=== PATIENT | female | born 1960 | race Caucasian/White ===

== ENCOUNTER → 2019-09-09 | Day surgery (SDC) | payer BC ==
[~2019-09-09] MED LIST: AMLODIPINE BESYL5 MG PO; ELAVIL PO; HYDROCODONE PO; HYOSCYAMINE 0.125 MG TAB ONE; IBUPROFEN PO; LEVAQUIN250 MG PO; LEVOCETIRIZINE D5 MG; LOSARTAN POTASS25 MG; LOVASTATIN20 MG PO; METFORMIN HCL500 MG PO; MONTELUKAST SOD10 MG PO; PROPOFOL IV EMULSION 10 MG/ML 50 ML VIAL ONE; SOMA PO; ULTRAM50 MG PO; VERAPAMIL ER240 MG PO
[2019-09-09 09:20] VITALS: BP 123/81
--- NOTE | 2019-09-09 16:54 | Operative Report ---
DATE OF PROCEDURE: 09/09/2019 SURGEON: Bartolome Gross MD PROCEDURE: Colonoscopy with polypectomy. INDICATIONS FOR COLONOSCOPY: Colorectal cancer screening. MEDICATIONS: The patient was done under MAC. Please see anesthesiologist's note. DESCRIPTION OF PROCEDURE: With the patient in left lateral decubitus position, flexible fiberoptic Olympus colonoscope was inserted into the rectum with ease and advanced all the way to the cecum. Scattered diverticular disease was noted throughout, but it was more prominent in the left colon. The ileocecal valve was intubated and the scope was advanced into the terminal ileum. There were some mild inflammatory changes noted in the terminal ileum and biopsies were obtained. The scope was then withdrawn back into the colon. It was then withdrawn slowly and some scattered diverticular disease was noted in ascending and the transverse, one polyp was hot snared from the descending colon. Two polyps were hot biopsied from the sigmoid colon. One polyp was hot snared and two polyps were hot biopsied from the rectum. The scope was then retroflexed into the distal rectum and small internal hemorrhoids were noted, none of which was actively bleeding. The scope was then straightened out. It was subsequently withdrawn. The patient tolerated the procedure well. IMPRESSION: 1. Descending colon polyp hot snared. 2. Diverticulosis, scattered pretty much throughout, but more prominent in the left colon. Sigmoid colon polyps x2 hot biopsied. 3. Rectal polyps x3, one hot snared and two hot biopsied. 4. Internal hemorrhoids, none actively bleeding. PLAN: Follow up histology. Initiate high-fiber, low-fat diet. Initiate high-fiber supplement. The patient might benefit from a followup colonoscopy in 3 years. MD SHANICE Siegel/DASHA /[id number] cc: Yesenia Leavitt MD
--- OUTSIDE RECORDS SUMMARY | 2019-09-15 11:58 | XMS REPORT ---
Author Author [facility] Address Unknown Phone Unavailable Care Team Providers Care Thermostat Repairer Name Role Phone Unavailable Unavailable Payers Payer Name Policy Type Policy Number Effective Date Expiration Date Problems This patient has no known problems. Allergies, Adverse Reactions, Alerts Allergy Name Allergy Type Status Severity Reaction(s) Onset Date Inactive Date Treating Clinician Comments iodine DA Active SV 2019-06-22 00:00:00 iodine DA Active SV 2019-06-20 00:00:00 iodine DA Active SV 2019-04-27 00:00:00 No Known Allergies DA Active U 2018-07-22 00:00:00 Iodinated Contrast- Oral and IV Dye DA Active DE 2017-07-21 00:00:00 Medications This patient has no known medications. Results Test Description Test Time Test Comments Text Results Atomic Results Result Comments BASIC METABOLIC PANEL 2019-07-15 09:58:00 SODIUM (test code=NA) 145 mmol/L 136-145 POTASSIUM (test code=K) 4.2 mmol/L 3.5-5.1 CHLORIDE (test code=CL) 109.0 mmol/L 98-107 CARBON DIOXIDE (test code=CO2) 31.0 mmol/L 21-32 ANION GAP (test code=GAP) 9.2 10-20 GLUCOSE (test code=GLU) 91 mg/dL 74-106 BLOOD UREA NITROGEN (test code=BUN) 14 mg/dL 7-18 GLOMERULAR FILTRATION RATE (test code=GFR) > 60 mL/min >=60 Estimated GFR by using Modified MDRD formula.Chronic kidney disease is defined as either kidney damageor GFR <60 mL/min/1.73 m2 for >3 months. CREATININE (test code=CREAT) 0.80 mg/dL 0.55-1.02 Note change in reference range due to change in reagent. BUN/CREATININE RATIO (test code=BUN/CREA) 17.6 10-20 CALCIUM (test code=CA) 9.0 mg/dL 8.5-10.1 LIPID PROFILE (CORONARY RISK)2019-07-15 09:58:00* Test Item Value Reference Range Comments TRIGLYCERIDES (test code=TRIG) 91 mg/dL 20-150 CHOLESTEROL (test code=CHOL) 167 mg/dL 0-200 CHOLESTEROL/HDL RATIO (test code=CHOLHDL) 3.0 RATIO 0-4.9 RISK ASSOCIATED WITH CHOL/HDL RATIOS: Risk Male Female1/2 AVERAGE 3.43 3.27AVERAGE 4.97 4.442X AVERAGE 9.55 7.053X AVERAGE 23.39 11.04 REFERENCE VALUE IS RELATED TO RISK LEVELS ASRECOMMENDED BY THE EDA. HEART, LUNG, AND BLOOD INST. HDL CHOLESTEROL (test code=HDL) 43 mg/dL 40-60 LIPOPROTEIN LDL (test code=LDL) 114 mg/dL 100-129 RN PERSONNEL, CONTACT PHYSICIAN IMMEDIATELY IF THIS IS A STROKE, AMI OR CAROTID STENOSIS PATIENT WHEN THE LDL >100 (1ST OCCURENCE, THIS ADMISSION) Reference Interval: mg/dL mmol/L Optimal <100 <2.6Near/above optimal 100-129 2.6- 3.3Borderline High 130-159 3.4-4.1High 160-189 4.1-4.9Very High >=190 >=4.9=========This LDL result is a direct measurement.========= HEPATIC FUNCTION [id number] 09:58:00* Test Item Value Reference Range Comments TOTAL PROTEIN (test code=PROT) 7.0 gram/dL 6.4-8.2 ALBUMIN (test code=ALB) 3.7 g/dL 3.4-5.0 GLOBULIN (test code=GLOB) 3.3 gram/dL 2.7-4.2 ALBUMIN/GLOBULIN RATIO (test code=A/G) 1.1 0.75-1.50 BILIRUBIN TOTAL (test code=BILT) 0.40 mg/dL 0.0-1.0 BILIRUBIN DIRECT (test code=BILD) 0.10 mg/dL 0.0-0.20 SGOT/AST (test code=AST) 14 IUnit/L 15-37 SGPT/ALT (test code=ALT) 20 IUnit/L 12-78 ALKALINE PHOSPHATASE TOTAL (test code=ALKP) 66 IUnit/L 45-117 Note change in reference range due to change in reagent. T4 (THYROXINE)2019-07-15 09:58:00* Test Item Value Reference Range Comments T4 (THYROXINE) (test code=T4) 11.7 ug/dL 4.5-13.9 TSH REFLEX TO [id number] 09:58:00* Test Item Value Reference Range Comments TSH REFLEX TO FT4 (test code=TSHREFLEX) 1.0 0.4-5.5 [id number] 09:46:00* Test Item Value Reference Range Comments GLYCOSYLATED HEMOGLOBIN (HA1C) (test code=GLYHGB) 7.1 % HbA1 4.8-6.0 ESTIMATED AVERAGE GLUCOSE (test code=EAG) 157 MG/DL BASIC METABOLIC [id number] 09:45:00* Test Item Value Reference Range Comments SODIUM (test code=NA) 145 mmol/L 136-145 POTASSIUM (test code=K) 4.2 mmol/L 3.5-5.1 CHLORIDE (test code=CL) 109.0 mmol/L 98-107 CARBON DIOXIDE (test code=CO2) mmol/L 21-32 ANION GAP (test code=GAP) 10-20 GLUCOSE (test code=GLU) mg/dL 74-106 BLOOD UREA NITROGEN (test code=BUN) mg/dL 7-18 GLOMERULAR FILTRATION RATE (test code=GFR) mL/min >=60 CREATININE (test code=CREAT) mg/dL 0.55-1.02 BUN/CREATININE RATIO (test code=BUN/CREA) 10-20 CALCIUM (test code=CA) mg/dL 8.5-10.1 LIPID PROFILE (CORONARY RISK)2019-07-15 09:45:00* Test Item Value Reference Range Comments TRIGLYCERIDES (test code=TRIG) mg/dL 20-150 CHOLESTEROL (test code=CHOL) mg/dL 0-200 CHOLESTEROL/HDL RATIO (test code=CHOLHDL) RATIO 0-4.9 HDL CHOLESTEROL (test code=HDL) mg/dL 40-60 LIPOPROTEIN LDL (test code=LDL) mg/dL 100-129 HEPATIC FUNCTION [id number] 09:45:00* Test Item Value Reference Range Comments TOTAL PROTEIN (test code=PROT) gram/dL 6.4-8.2 ALBUMIN (test code=ALB) g/dL 3.4-5.0 GLOBULIN (test code=GLOB) gram/dL 2.7-4.2 ALBUMIN/GLOBULIN RATIO (test code=A/G) 0.75-1.50 BILIRUBIN TOTAL (test code=BILT) mg/dL 0.0-1.0 BILIRUBIN DIRECT (test code=BILD) mg/dL 0.0-0.20 SGOT/AST (test code=AST) IUnit/L 15-37 SGPT/ALT (test code=ALT) IUnit/L 12-78 ALKALINE PHOSPHATASE TOTAL (test code=ALKP) IUnit/L 45-117 T4 (THYROXINE)2019-07-15 09:45:00* Test Item Value Reference Range Comments T4 (THYROXINE) (test code=T4) ug/dL 4.5-13.9 TSH REFLEX TO [id number] 09:45:00* Test Item Value Reference Range Comments TSH REFLEX TO FT4 (test code=TSHREFLEX) 0.4-5.5 CBC W/AUTO [id number] 09:12:00* Test Item Value Reference Range Comments WHITE BLOOD CELL (test code=WBC) 9.6 K/mm3 4.5-12.5 RED BLOOD CELL (test code=RBC) 4.95 mill/mm3 3.7-5.2 HEMOGLOBIN (test code=HGB) 13.8 gram/dL 11.5-15.5 HEMATOCRIT (test code=HCT) 44.4 % 36.0-46.0 MEAN CELL VOLUME (test code=MCV) 89.7 fL 80-98 MEAN CELL HGB (test code=MCH) 27.9 picogram 27.0-33.0 MEAN CELL HGB CONCETRATION (test code=MCHC) 31.1 gram/dL 33.0-36.0 RED CELL DISTRIBUTION WIDTH (test code=RDW) 14.1 % 11.6-16.2 RED CELL DISTRIBUTION WIDTH SD (test code=RDW-SD) 46.0 fL 37.0-51.0 PLATELET COUNT (test code=PLT) 261 K/mm3 150-450 MEAN PLATELET VOLUME (test code=MPV) 10.9 fL 6.7-11.0 NEUTROPHIL % (test code=NT%) 59.6 % 39.0-69.0 IMMATURE GRANULOCYTE % (test code=IG%) 0.3 % 0.0-5.0 LYMPHOCYTE % (test code=LY%) 26.4 % 25.0-55.0 MONOCYTE % (test code=MO%) 9.4 % 0.0-10.0 EOSINOPHIL % (test code=EO%) 3.6 % 0.0-5.0 BASOPHIL % (test code=BA%) 0.7 % 0.0-1.0 NUCLEATED RBC % (test code=NRBC%) 0.0 % 0-0 NEUTROPHIL # (test code=NT#) 5.69 K/mm3 1.8-7.7 IMMATURE GRANULOCYTE # (test code=IG#) 0.03 x10 3/uL 0-0.03 LYMPHOCYTE # (test code=LY#) 2.52 K/mm3 1.0-5.0 MONOCYTE # (test code=MO#) 0.90 K/mm3 0-0.8 EOSINOPHIL # (test code=EO#) 0.34 K/mm3 0.0-0.5 BASOPHIL # (test code=BA#) 0.07 K/mm3 0.0-0.2 NUCLEATED RBC # (test code=NRBC#) 0.00 K/mm3 0.0-0.1 MANUAL DIFF REQUIRED (test code=MDIFF) NO CBC W/AUTO [id number] 09:08:00* Test Item Value Reference Range Comments WHITE BLOOD CELL (test code=WBC) K/mm3 4.5-12.5 RED BLOOD CELL (test code=RBC) mill/mm3 3.7-5.2 HEMOGLOBIN (test code=HGB) 13.8 gram/dL 11.5-15.5 HEMATOCRIT (test code=HCT) 44.4 % 36.0-46.0 MEAN CELL VOLUME (test code=MCV) fL 80-98 MEAN CELL HGB (test code=MCH) picogram 27.0-33.0 MEAN CELL HGB CONCETRATION (test code=MCHC) gram/dL 33.0-36.0 RED CELL DISTRIBUTION WIDTH (test code=RDW) % 11.6-16.2 RED CELL DISTRIBUTION WIDTH SD (test code=RDW-SD) fL 37.0-51.0 PLATELET COUNT (test code=PLT) K/mm3 150-450 MEAN PLATELET VOLUME (test code=MPV) fL 6.7-11.0 NEUTROPHIL % (test code=NT%) % 39.0-69.0 IMMATURE GRANULOCYTE % (test code=IG%) % 0.0-5.0 LYMPHOCYTE % (test code=LY%) % 25.0-55.0 MONOCYTE % (test code=MO%) % 0.0-10.0 EOSINOPHIL % (test code=EO%) % 0.0-5.0 BASOPHIL % (test code=BA%) % 0.0-1.0 NEUTROPHIL # (test code=NT#) K/mm3 1.8-7.7 LYMPHOCYTE # (test code=LY#) K/mm3 1.0-5.0 MONOCYTE # (test code=MO#) K/mm3 0-0.8 EOSINOPHIL # (test code=EO#) K/mm3 0.0-0.5 BASOPHIL # (test code=BA#) K/mm3 0.0-0.2 - CT ABD PELVIS [id number] 06:43:00 FAX: Yesenia Yang MD [phone] Ute: St: DIS Name: JEN LOPEZ [facility] : 0 Age/S: 59/F [address] Unit: [id number] Loc: C.55[address] [place] [address] Phys: Brody Sevilla MD Acct: [id number] Dis Date: 06/22/2019 Status: DIS IN PHONE #: Exam Date: 06/22/2019612 FAX #: [phone] Reason: HYDRONEPHROSIS EXAMS: CPT CODE: [id number] CT ABD PELVIS W/CONT 43711 EXAM: CT ABDOMEN AND PELVIS WITH IV CONTRAST DICTATION LOCATION: H48 HISTORY: Female, 59 years of age with hydronephrosis, pyelonephritis TECHNIQUE: Contrast: Nonionic IV contrast was given. No GI contrast was given. Portal venous phase: Abdomen and pelvis Delayed phase: Kidneys only Reconstructions: Coronal and sagittal One or more of the followi ng dose reduction techniques were used: Automated exposure control; adjust ment of the mA and/or kV according to the patient size; and/or use of iter ative reconstruction technique. COMPARISON: Previous CT abdomen an d pelvis without contrast 06/20/2019 FINDINGS: Statements: Ex am quality is acceptable. Lower thorax: Unremarkable. Hepatobiliary: The liver is normal without focal lesion. The gallbladder is normal. No biliary dilation. Pancreas: Normal. S pleen: Normal. Adrenals: Normal. Genitourinary: The right kidney and collecting system are normal. Left kidney is moderately atrophic with multifocal cortical scarring. There is jpek-tg-bjczactw dila tation of left renal pelvis. There is mild dilatation of the proximal left ureter. No left ureteral calculi are seen. There is diffuse urothelial th ickening and enhancement on the left most likely a reflection of urinary t ract infection. There is only minimal left perinephric stranding. No perin ephric abscess. Urinary bladder is unremarkable. Uterus and ovaries are no t seen. Gastrointestinal: No bowel obstruction or perienteric infl ammation. The appendix is normal. Several colonic diverticula are noted. PAGE 1 Signed Report (ERROL NUED) FAX: Yesenia Yang MD [phone] Ute: St: DIS---- [place] e: JEN DE JESUS [facility] : Age/S: 59/F [address] Unit: [id number] Loc: C.55[address] [place] [address] Phys: Brody Sevilla MD Acct: [id number] Dis Da te: 06/22/2019 Status: DIS IN PHONE #: Exam Date: 06/22/2019612 FAX #: [phone] Reason: HYDRONEPHROSIS EXAMS: CPT CODE: [id number] CT ABD PELVIS W/ CONT 50297 <Continued> Vascular: No aortic aneurysm or dissection. Lymphatics: No enlarged lymph nodes by CT size criteria. Bones/Soft Tissues: No acute osseous findings. No ventral hernias. Peritoneum/Other: No free intraperitoneal air. No free intraperitoneal fluid. I MPRESSION: 1. There is left hydronephrosis and hydroureter without ure teral stone, improved since 06/20/2019. 2. Diffuse left urothelia l thickening and enhancement consistent with urinary tract infection. 3. Moderate diffuse cortical thinning and scarring left kidney. No intrarenal or perirenal abscess. 4. Diverticulosis coli without evidence for acute diverticulitis. at 0643 Reported and signed by: Katelyn Garica MD CC: Yesenia Leavitt MD Technologist: Tiffanie Raymundo; Jacinta Forde [facility] Dt/Tm: 06/22/2019 (0643) Shaknar Orig Print D/T: S: 06/22/2019 (0646 PAGE 2 Signed Report - CT ABD PELVIS [id number] 06:43:00 FAX: Yesenia Yang MD [phone] Ute: St: ADM Name: JEN LOPEZ [place] : 0 Age/S: 59/F [address] Unit: [id number] Loc: C.55[address] [place] [address] Phys: Brody Sevilla MD Acct: [id number] Dis Date: Status: ADM IN PHONE #: [phone] Exam Date: 06/22/2019612 FAX #: [phone] Reason: HYDRONEPHROSIS EXAMS: CPT CODE: [id number] CT ABD PELVIS W/CONT 74334 EXAM: CT ABDOMEN AND PELVIS WITH IV CONTRAST DICTATION LOCATION: 8 HISTORY: Female, 59 years of age with hydronephrosis, pyelonephritis TECHNIQUE: Contrast: Nonionic IV contrast was given. No GI contrast was given. Portal venous phase: Abdomen and pelvis Delayed phase: Kidneys only Reconstructions: Coronal and sagittal One or more of the followi ng dose reduction techniques were used: Automated exposure control; adjust ment of the mA and/or kV according to the patient size; and/or use of iter ative reconstruction technique. COMPARISON: Previous CT abdomen an d pelvis without contrast 06/20/2019 FINDINGS: Statements: Ex am quality is acceptable. Lower thorax: Unremarkable. Hepatobiliary: The liver is normal without focal lesion. The gallbladder is normal. No biliary dilation. Pancreas: Normal. S pleen: Normal. Adrenals: Normal. Genitourinary: The right kidney and collecting system are normal. Left kidney is moderately atrophic with multifocal cortical scarring. There is nwkj-ad-[id number] dila tation of left renal pelvis. There is mild dilatation of the proximal left ureter. No left ureteral calculi are seen. There is diffuse urothelial th ickening and enhancement on the left most likely a reflection of urinary t ract infection. There is only minimal left perinephric stranding. No perin ephric abscess. Urinary bladder is unremarkable. Uterus and ovaries are no t seen. Gastrointestinal: No bowel obstruction or perienteric infl ammation. The appendix is normal. Several colonic diverticula are noted. PAGE 1 Signed Report (ERROL SKIP) FAX: Yesenia Yang MD [phone] Ute: St: ADM---- [place] e: JEN DE JESUS [facility] : Age/S: 59/F [address] Unit: [id number] Loc: C.55[address] [place] [address] Phys: Brody Sevilla MD Acct: [id number] Dis Da te: Status: ADM IN PHONE #: Exam Date: 06/22/2019612 FAX #: Reason: HYDRONEPHROSIS EXAMS: CPT CODE: [id number] CT ABD PELVIS W/ CONT 47309 <Continued> Vascular: No aortic aneurysm or dissection. Lymphatics: No enlarged lymph nodes by CT size criteria. Bones/Soft Tissues: No acute osseous findings. No ventral hernias. Peritoneum/Other: No free intraperitoneal air. No free intraperitoneal fluid. I MPRESSION: 1. There is left hydronephrosis and hydroureter without ure teral stone, improved since 06/20/2019. 2. Diffuse left urothelia l thickening and enhancement consistent with urinary tract infection. 3. Moderate diffuse cortical thinning and scarring left kidney. No intrarenal or perirenal abscess. 4. Diverticulosis coli without evidence for acute diverticulitis. at 6481 Reported and signed by: Katelyn Garcia MD CC: Yesenia Leavitt MD Technologist: Tiffanie Raymundo; Jacinta Forde Trn[facility]rd Dt/Tm: 06/22/2019 (4177) [email or web address] Orig Print D/T: S: 06/22/2019 (0646 PAGE 2 Signed Report BASIC METABOLIC [id number] 04:21:00* Test Item Value Reference Range Comments SODIUM (test code=NA) 142 mmol/L 137-145 POTASSIUM (test code=K) 4.2 mmol/L 3.4-5.0 CHLORIDE (test code=CL) 108 mmol/L 98-107 CARBON DIOXIDE (test code=CO2) 24 mmol/L 22-30 GLUCOSE (test code=GLU) 189 mg/dL 74-106 BLOOD UREA NITROGEN (test code=BUN) 17 mg/dL 7-17 GLOMERULAR FILTRATION RATE (test code=GFR) 109 >60 The estimated glomerular filtration rate is computed usingpatient race, age (>18), sex, and serum creatinine. If anyof the needed data elements are missing the Laboratory cannot compute an estimation of the glomerular filtration rate. CREATININE (test code=CREAT) 0.6 mg/dL 0.5-1.0 CALCIUM (test code=CA) 8.7 mg/dL 8.4-10.2 CBC W/AUTO [id number] 04:06:00* Test Item Value Reference Range Comments WHITE BLOOD CELL (test code=WBC) 14.3 x10 3/uL 5.0-12.0 RED BLOOD CELL (test code=RBC) 4.63 x10 6/uL 4.20-5.40 HEMOGLOBIN (test code=HGB) 12.9 g/dL 12.0-16.0 HEMATOCRIT (test code=HCT) 39.8 % 36.0-46.0 MEAN CELL VOLUME (test code=MCV) 86 fL 81-99 MEAN CELL HGB (test code=MCH) 27.9 pg 27-31 MEAN CELL HGB CONCENTRATION (test code=MCHC) 32.4 g/dL 33-37 RED CELL DISTRIBUTION WIDTH (test code=RDW) 13.9 % 11.5-15.5 PLATELET COUNT (test code=PLT) 202 x10 3/uL 130-400 MEAN PLATELET VOLUME (test code=MPV) 11.5 fL 9.4-16.4 NEUTROPHIL % (test code=NT%) 89.2 % 43-65 IMMATURE GRANULOCYTE % (test code=IG%) 0.5 % 0.0-2.0 LYMPHOCYTE % (test code=LY%) 7.8 % 20.5-45.5 MONOCYTE % (test code=MO%) 2.4 % 5.5-11.7 EOSINOPHIL % (test code=EO%) 0.0 % 0.9-2.9 BASOPHIL % (test code=BA%) 0.1 % 0.2-1.0 NUCLEATED RBC % (test code=NRBC%) 0.0 % 0-1.0 NEUTROPHIL # (test code=NT#) 12.77 x10 3/uL 2.2-4.8 IMMATURE GRANULOCYTE # (test code=IG#) 0.07 x10 3/uL 0-0.03 LYMPHOCYTE # (test code=LY#) 1.11 x10 3/uL 1.3-2.9 MONOCYTE # (test code=MO#) 0.35 x10 3/uL 0.3-0.8 EOSINOPHIL # (test code=EO#) 0.00 x10 3/uL 0.0-0.2 BASOPHIL # (test code=BA#) 0.02 x10 3/uL 0.0-0.1 COMPREHENSIVE METABOLIC [id number] 04:21:00* Test Item Value Reference Range Comments SODIUM (test code=NA) 138 mmol/L 137-145 POTASSIUM (test code=K) 3.6 mmol/L 3.4-5.0 CHLORIDE (test code=CL) 107 mmol/L 98-107 CARBON DIOXIDE (test code=CO2) 25 mmol/L 22-30 GLUCOSE (test code=GLU) 100 mg/dL 74-106 BLOOD UREA NITROGEN (test code=BUN) 17 mg/dL 7-17 GLOMERULAR FILTRATION RATE (test code=GFR) 78 >60 The estimated glomerular filtration rate is computed usingpatient race, age (>18), sex, and serum creatinine. If anyof the needed data elements are missing the Laboratory cannot compute an estimation of the glomerular filtration rate. CREATININE (test code=CREAT) 0.8 mg/dL 0.5-1.0 TOTAL PROTEIN (test code=PROT) 5.8 g/dL 6.3-8.2 ALBUMIN (test code=ALB) 3.4 g/dL 3.5-5.0 CALCIUM (test code=CA) 8.2 mg/dL 8.4-10.2 BILIRUBIN TOTAL (test code=BILT) 0.4 mg/dL 0.2-1.3 BILIRUBIN CONJUGATED (test code=BILCON) 0 mg/dL 0-0.3 ~~~~~~~~~~~~~~~~~~~~~~~~~~~~~~~~~~~~~~~~~~~~~~~~~~~~~~~~~~~~CONJUGATED BILIRUBIN IS THE REPLACEMENT ASSAY FOR DIRECTBILIRUBIN.~~~~~~~~~~~~~~~~~~~~~~~~~~~~~~~~~~~~~~~~~~~~~~~~~~~~~~~~~~~~ BILIRUBIN UNCONJUGATED (test code=BILUNC) 0.3 mg/dL 0-1.1 SGOT/AST (test code=AST) 12 U/L 15-46 SGPT/ALT (test code=ALT) 23 U/L 13-69 ALKALINE PHOSPHATASE (test code=ALKP) 46 U/L 38-126 LIPID PROFILE (CORONARY RISK)2019-06-21 04:21:00* Test Item Value Reference Range Comments TRIGLYCERIDES (test code=TRIG) 79 mg/dL TRIGLYCERIDES REFERENCE RANGE:Normal: <150 mg/dLBorderline High: 150-199 mg/dLHigh: 200-499 mg/dLVery High: >=500 mg/dL CHOLESTEROL (test code=CHOL) 109 mg/dL CHOLESTEROL REFERENCE RANGE:DESIRABLE: < 200 mg/dLBORDERLINE: 200-239 mg/dLHIGH: >=240 mg/dL HDL CHOLESTEROL (test code=HDL) 32 mg/dL 40-59 LIPOPROTEIN LDL (test code=LDLC) 65.41 mg/dL 32-99 CORONARY RISK FACTOR (test code=RISK) 3.41 CHOL/HDL RISK MALE: 1/2 AVG 3.43 FEMALE: 1/2 AVG 3.27 AVG 4.97 AVG 4.44 2X AVG 9.55 2X AVG 7.05 3X AVG 23.39 3X AVG 11.04~~~~~~~~~~~~~~~~~~~~~~~~~~~~~~~~~~~~~~~~~~~~~~~~~~~~~~~~~~~~National Cholesterol Education (NCEP) Guidelines:~~~~~~~~~~~~~~~~~~~~~~~~~~~~~~~~~~~~~~~~~~~~~~~~~~~~~~~~~~~~ HDL Cholesterol<40mg/dL: HDL Cholesterol (Major risk factor for CHD)>60mg/dL: HDL Cholesterol (Negative risk factor for CHD)40-59mg/dL: Borderline Risk LDL Cholesterol<100mg/dL: Desirable LDL-C srnjtjqofvadw615-605gl/dL: Borderline High Risk LDL-C omtqportzoduv898-297pc/dL: High risk LDL-C concentration HDL-LDL Cholesterol is affected by a number of factors suchas smoking, age and sex.~~~~~~~~~~~~~~~~~~~~~~~~~~~~~~~~~~~~~~~~~~~~~~~~~~~~~~~~~~~~ [id number] 04:21:00* Test Item Value Reference Range Comments MAGNESIUM (test code=MAG) 1.7 mg/dL 1.6-2.3 COMPREHENSIVE METABOLIC [id number] 04:06:00* Test Item Value Reference Range Comments SODIUM (test code=NA) 138 mmol/L 137-145 POTASSIUM (test code=K) 3.6 mmol/L 3.4-5.0 CHLORIDE (test code=CL) 107 mmol/L 98-107 CARBON DIOXIDE (test code=CO2) 25 mmol/L 22-30 GLUCOSE (test code=GLU) 100 mg/dL 74-106 BLOOD UREA NITROGEN (test code=BUN) 17 mg/dL 7-17 GLOMERULAR FILTRATION RATE (test code=GFR) 78 >60 The estimated glomerular filtration rate is computed usingpatient race, age (>18), sex, and serum creatinine. If anyof the needed data elements are missing the Laboratory cannot compute an estimation of the glomerular filtration rate. CREATININE (test code=CREAT) 0.8 mg/dL 0.5-1.0 TOTAL PROTEIN (test code=PROT) 5.8 g/dL 6.3-8.2 ALBUMIN (test code=ALB) 3.4 g/dL 3.5-5.0 CALCIUM (test code=CA) 8.2 mg/dL 8.4-10.2 BILIRUBIN TOTAL (test code=BILT) 0.4 mg/dL 0.2-1.3 BILIRUBIN CONJUGATED (test code=BILCON) 0 mg/dL 0-0.3 ~~~~~~~~~~~~~~~~~~~~~~~~~~~~~~~~~~~~~~~~~~~~~~~~~~~~~~~~~~~~CONJUGATED BILIRUBIN IS THE REPLACEMENT ASSAY FOR DIRECTBILIRUBIN.~~~~~~~~~~~~~~~~~~~~~~~~~~~~~~~~~~~~~~~~~~~~~~~~~~~~~~~~~~~~ BILIRUBIN UNCONJUGATED (test code=BILUNC) 0.3 mg/dL 0-1.1 SGOT/AST (test code=AST) 12 U/L 15-46 SGPT/ALT (test code=ALT) 23 U/L 13-69 ALKALINE PHOSPHATASE (test code=ALKP) 46 U/L 38-126 LIPID PROFILE (CORONARY RISK)2019-06-21 04:06:00* Test Item Value Reference Range Comments TRIGLYCERIDES (test code=TRIG) 79 mg/dL TRIGLYCERIDES REFERENCE RANGE:Normal: <150 mg/dLBorderline High: 150-199 mg/dLHigh: 200-499 mg/dLVery High: >=500 mg/dL CHOLESTEROL (test code=CHOL) 109 mg/dL CHOLESTEROL REFERENCE RANGE:DESIRABLE: < 200 mg/dLBORDERLINE: 200-239 mg/dLHIGH: >=240 mg/dL HDL CHOLESTEROL (test code=HDL) 32 mg/dL 40-59 LIPOPROTEIN LDL (test code=LDLC) mg/dL 32-99 CORONARY RISK FACTOR (test code=RISK) 3.41 CHOL/HDL RISK MALE: 1/2 AVG 3.43 FEMALE: 1/2 AVG 3.27 AVG 4.97 AVG 4.44 2X AVG 9.55 2X AVG 7.05 3X AVG 23.39 3X AVG 11.04~~~~~~~~~~~~~~~~~~~~~~~~~~~~~~~~~~~~~~~~~~~~~~~~~~~~~~~~~~~~National Cholesterol Education (NCEP) Guidelines:~~~~~~~~~~~~~~~~~~~~~~~~~~~~~~~~~~~~~~~~~~~~~~~~~~~~~~~~~~~~ HDL Cholesterol<40mg/dL: HDL Cholesterol (Major risk factor for CHD)>60mg/dL: HDL Cholesterol (Negative risk factor for CHD)40-59mg/dL: Borderline Risk LDL Cholesterol<100mg/dL: Desirable LDL-C klkqewqgxcojo782-204bl/dL: Borderline High Risk LDL-C pgamkaymodrta369-440pp/dL: High risk LDL-C concentration HDL-LDL Cholesterol is affected by a number of factors suchas smoking, age and sex.~~~~~~~~~~~~~~~~~~~~~~~~~~~~~~~~~~~~~~~~~~~~~~~~~~~~~~~~~~~~ [id number] 04:06:00* Test Item Value Reference Range Comments MAGNESIUM (test code=MAG) 1.7 mg/dL 1.6-2.3 CBC W/AUTO [id number] 03:53:00* Test Item Value Reference Range Comments WHITE BLOOD CELL (test code=WBC) 17.8 x10 3/uL 5.0-12.0 RED BLOOD CELL (test code=RBC) 4.70 x10 6/uL 4.20-5.40 HEMOGLOBIN (test code=HGB) 13.2 g/dL 12.0-16.0 HEMATOCRIT (test code=HCT) 40.4 % 36.0-46.0 MEAN CELL VOLUME (test code=MCV) 86 fL 81-99 MEAN CELL HGB (test code=MCH) 28.1 pg 27-31 MEAN CELL HGB CONCENTRATION (test code=MCHC) 32.7 g/dL 33-37 RED CELL DISTRIBUTION WIDTH (test code=RDW) 14.0 % 11.5-15.5 PLATELET COUNT (test code=PLT) 202 x10 3/uL 130-400 MEAN PLATELET VOLUME (test code=MPV) 11.0 fL 9.4-16.4 NEUTROPHIL % (test code=NT%) 71.3 % 43-65 IMMATURE GRANULOCYTE % (test code=IG%) 0.4 % 0.0-2.0 LYMPHOCYTE % (test code=LY%) 17.7 % 20.5-45.5 MONOCYTE % (test code=MO%) 9.9 % 5.5-11.7 EOSINOPHIL % (test code=EO%) 0.4 % 0.9-2.9 BASOPHIL % (test code=BA%) 0.3 % 0.2-1.0 NUCLEATED RBC % (test code=NRBC%) 0.0 % 0-1.0 NEUTROPHIL # (test code=NT#) 12.68 x10 3/uL 2.2-4.8 IMMATURE GRANULOCYTE # (test code=IG#) 0.08 x10 3/uL 0-0.03 LYMPHOCYTE # (test code=LY#) 3.15 x10 3/uL 1.3-2.9 MONOCYTE # (test code=MO#) 1.76 x10 3/uL 0.3-0.8 EOSINOPHIL # (test code=EO#) 0.07 x10 3/uL 0.0-0.2 BASOPHIL # (test code=BA#) 0.05 x10 3/uL 0.0-0.1 LACTIC ACID [id number] 14:54:00* Test Item Value Reference Range Comments LACTIC ACID POC (test code=LACTP) 0.69 mmol/L 0.7-2.0 UA RFLX MICR CULT IF [id number] 14:47:00* Test Item Value Reference Range Comments UA COLOR (test code=COLU) Yellow Yellow UA APPEARANCE (test code=APPU) Cloudy Clear UA GLUCOSE DIPSTICK (test code=DGLUU) Negative Negative UA BILIRUBIN DIPSTICK (test code=BILU) Negative Negative UA KETONE DIPSTICK (test code=KETU) Negative mg/dL Negative UA SPECIFIC GRAVITY (test code=SGU) 1.017 <1.030 UA BLOOD DIPSTICK (test code=KONG) 2+ Negative UA PH DIPSTICK (test code=TAE) 6.0 5.0-8.0 UA PROTEIN DIPSTICK (test code=PROU) 100 (2+) mg/dL Negative UA UROBILINOGEN DIPSTICK (test code=URO) Negative mg/dL Negative UA NITRITE DIPSTICK (test code=MOIRA) Negative Negative UA LEUKOCYTE ESTERASE DIPSTICK (test code=LEUU) 2+ Negative UA WBC (test code=WBCUR) >100 /HPF <4-5 >10 WBC/HPF=PYURIA PRESENT URINE CULTURE PROCESSED UA RBC (test code=RBCU) >100 /HPF <4-5 UA BACTERIA (test code=BACU) 1+ /HPF None-Rare UA SQUAMOUS CELLS (test code=SQU) 0-5 (RARE) /HPF 0-5 (RARE) UA MUCUS (test code=MUCU) Rare /LPF <Rare SOURCE OF URINE: CLEAN CATCHIndication for culture: Dysuria/Frequency Fl ank Pain- CT ABD PELVIS W/O [id number] 13:32:00 FAX: Yesenia Yang MD [phone] Ute: St: DIS Name: NEGIN GAYLEJEN [facility] : 0 Age/S: 59/F [address] Unit: [id number] Loc: C.5513 [place] [address] Phys: Irena Coreas [employer]FF[employer]NER Acct: [id number] Dis Date: 06/22/2019 Status: DIS IN PHONE #: [phone] Exam Date: 06/20/2019 1310 FAX #: [phone] Reason: flank pain, hx of kidney stone EXAMS: CPT CODE: [id number] CT ABD PELVIS W/O CONT 65891 EXAM: - CT ABD PELVIS W/O CONT HISTORY: flank pain, hx of kidney stone Location code:C3 TECHNIQUE: Contrast - No IV contrast was given. No oral contrast was given Noncontrast phase - abdomen and pelvis including all of kidneys Reconstructions - coronal and sagittal planes Autom ated exposure reduction (Auto mA/Smart mA) was utilized in compliance with ACR Image Wisely with DLP of 426.69 mGy-cm. COMPARISON: 04/27/2019 FINDINGS: Statements: Lack of intravenous contrast compromises evaluation of abdominopelvic organs and vasculature. Lack of oral contrast compromises evaluation of bowel. Thoracic: Included images of the lower chest demonstrate no abnormalities. Hepatob iliary: The liver is normal without focal lesion. The gallbladder is emmanuelle l. No biliary dilation. Pancreas: Normal. Spleen: No rmal. Adrenals: Normal. Genitourinary: Moderate lef t-sided hydronephrosis is seen similar to prior exam with surrounding infl ammatory change about the left ureter. No calculus is visualized. The un enhanced kidneys are otherwise unremarkable. Evaluation of the bladder is limited, but no obvious bladder abnormality is present. Yany rointestinal: Extensive colonic diverticulosis is present without CT evide nce of diverticulitis. The appendix is normal. Vascular: The aorta is grossly normal in appearance. PAGE 1 Sig alexia Report (CONTINUED) FAX: Yesenia Yang MD Ute: St: DIS Name: JEN DE JESUS K abhilash : 1960 Age/S: 59/F [address] Unit: [id number] Loc: C.5513 [place] [address] Phys: Irena Coreas [employer]NER Acct: [id number] Dis Date: 06/22/2019 Status: DIS IN PHONE #: [phone] Exam Date: 06/20/2019 1310 FAX #: [phone] Reason: flank pain, hx of kidney stone EXAMS: CPT CODE: [id number] CT ABD PELVIS W/O CONT 26910 < Continued> Lymphatics: No enlarged lymph nodes by CT size criteria. Bones/Soft Tissues: No acute osseous findings. No ventral hernias. Peritoneum/Other: No extraluminal air. No extraluminal fluid. IMPRESSION: 1. Moderate left-sided hydronephrosis is again seen without visualized calculus. This is similar with study of 04/27/2019. Previously seen calculus in the distal left ureter on prior exam is not visualized on today's exam. 2. Colonic diverticulosis is present without CT evidence of diverticulitis. at 1332 Reported and signed by: Dariel Clinton MD CC: Yesenia Leavitt MD Technologist: MAINE CARPENTER; EMMANUELLE SALAZAR; STUDENT 2ND YEAR Trnscrd Dt/Tm: 06/20/2019 (3725) [email or web address] Orig Print D/T: S: 06/20/2019 (5006 PAGE 2 Signed Report - CT ABD PELVIS W/O [id number] 13:32:00 FAX: Yesenia Yang MD [phone] Ute: St: REG Name: JEN LOPEZ [facility] : 0 Age/S: 59/F [address] Unit: [id number] Loc: [place] [address] Phys: Irena Coreas [employer]NER Acct: [id number] Dis Date: Status: REG ER PHONE #: [phone] Exam Date: 06/20/2019 1310 FAX #: [phone] Reason: flank pain, hx of kidney stone EXAMS: CPT CODE: [id number] CT ABD PELVIS W/O CONT 64669 EXAM: - CT ABD PELVIS W/O CONT HISTORY: flank pain, hx of kidney stone Location code:C3 TECHNIQUE: Contrast - No IV contrast was given. No oral contrast was given Noncontrast phase - abdomen and pelvis including all of kidneys Reconstructions - coronal and sagittal planes Autom ated exposure reduction (Auto mA/Smart mA) was utilized in compliance with ACR Image Wisely with DLP of 426.69 mGy-cm. COMPARISON: 04/27/2019 FINDINGS: Statements: Lack of intravenous contrast compromises evaluation of abdominopelvic organs and vasculature. Lack of oral contrast compromises evaluation of bowel. Thoracic: Included images of the lower chest demonstrate no abnormalities. Hepatob iliary: The liver is normal without focal lesion. The gallbladder is emmanuelle l. No biliary dilation. Pancreas: Normal. Spleen: No rmal. Adrenals: Normal. Genitourinary: Moderate lef t-sided hydronephrosis is seen similar to prior exam with surrounding infl ammatory change about the left ureter. No calculus is visualized. The un enhanced kidneys are otherwise unremarkable. Evaluation of the bladder is limited, but no obvious bladder abnormality is present. Yany rointestinal: Extensive colonic diverticulosis is present without CT evide nce of diverticulitis. The appendix is normal. Vascular: The aorta is grossly normal in appearance. PAGE 1 Sig alexia Report (CONTINUED) FAX: Yesenia Yang MD Ute: St: REG Name: JEN DE JESUS frankezra : 1960 Age/S: 59/F [address] Unit: [id number] Loc: [place] [address] Phys: Irena Coreas NP Acct: [id number] Dis Date: Status: REG ER PHONE #: [phone] Exam Date: 06/20/2019 1310 FAX #: [phone] Reason: flank pain, hx of kidney stone EXAMS: CPT CODE: [id number] CT ABD PELVIS W/O CONT 81647 < Continued> Lymphatics: No enlarged lymph nodes by CT size criteria. Bones/Soft Tissues: No acute osseous findings. No ventral hernias. Peritoneum/Other: No extraluminal air. No extraluminal fluid. IMPRESSION: 1. Moderate left-sided hydronephrosis is again seen without visualized calculus. This is similar with study of 04/27/2019. Previously seen calculus in the distal left ureter on prior exam is not visualized on today's exam. 2. Colonic diverticulosis is present without CT evidence of diverticulitis. at 7632 Reported and signed by: Dariel Clinton MD CC: Yesenia Leavitt MD Technologist: MAINE CARPENTER; EMMANUELLE SALAZAR; STUDENT 2ND YEAR Trnscrd Dt/Tm: 06/20/2019 (9352) [email or web address] Orig Print D/T: S: 06/20/2019 (8443 PAGE 2 Signed Report BASIC METABOLIC [id number] 13:26:00* Test Item Value Reference Range Comments SODIUM (test code=NA) 142 mmol/L 137-145 POTASSIUM (test code=K) 4.3 mmol/L 3.4-5.0 CHLORIDE (test code=CL) 103 mmol/L 98-107 CARBON DIOXIDE (test code=CO2) 30 mmol/L 22-30 GLUCOSE (test code=GLU) 116 mg/dL 74-106 BLOOD UREA NITROGEN (test code=BUN) 20 mg/dL 7-17 GLOMERULAR FILTRATION RATE (test code=GFR) 78 >60 The estimated glomerular filtration rate is computed usingpatient race, age (>18), sex, and serum creatinine. If anyof the needed data elements are missing the Laboratory cannot compute an estimation of the glomerular filtration rate. CREATININE (test code=CREAT) 0.8 mg/dL 0.5-1.0 CALCIUM (test code=CA) 9.8 mg/dL 8.4-10.2 LIVER FUNCTION [id number] 13:26:00* Test Item Value Reference Range Comments TOTAL PROTEIN (test code=PROT) 7.6 g/dL 6.3-8.2 ALBUMIN (test code=ALB) 4.4 g/dL 3.5-5.0 BILIRUBIN TOTAL (test code=BILT) 0.4 mg/dL 0.2-1.3 BILIRUBIN CONJUGATED (test code=BILCON) 0 mg/dL 0-0.3 ~~~~~~~~~~~~~~~~~~~~~~~~~~~~~~~~~~~~~~~~~~~~~~~~~~~~~~~~~~~~CONJUGATED BILIRUBIN IS THE REPLACEMENT ASSAY FOR DIRECTBILIRUBIN.~~~~~~~~~~~~~~~~~~~~~~~~~~~~~~~~~~~~~~~~~~~~~~~~~~~~~~~~~~~~ BILIRUBIN UNCONJUGATED (test code=BILUNC) 0.3 mg/dL 0-1.1 SGOT/AST (test code=AST) 21 U/L 15-46 SGPT/ALT (test code=ALT) 29 U/L 13-69 ALKALINE PHOSPHATASE (test code=ALKP) 60 U/L 38-126 [id number] 13:26:00* Test Item Value Reference Range Comments LIPASE (test code=LIP) 68 U/L 23-300 CBC W/AUTO [id number] 13:07:00* Test Item Value Reference Range Comments WHITE BLOOD CELL (test code=WBC) 18.1 x10 3/uL 5.0-12.0 RED BLOOD CELL (test code=RBC) 5.35 x10 6/uL 4.20-5.40 HEMOGLOBIN (test code=HGB) 15.1 g/dL 12.0-16.0 HEMATOCRIT (test code=HCT) 46.0 % 36.0-46.0 MEAN CELL VOLUME (test code=MCV) 86 fL 81-99 MEAN CELL HGB (test code=MCH) 28.2 pg 27-31 MEAN CELL HGB CONCENTRATION (test code=MCHC) 32.8 g/dL 33-37 RED CELL DISTRIBUTION WIDTH (test code=RDW) 14.1 % 11.5-15.5 PLATELET COUNT (test code=PLT) 253 x10 3/uL 130-400 MEAN PLATELET VOLUME (test code=MPV) 10.8 fL 9.4-16.4 NEUTROPHIL % (test code=NT%) 77.2 % 43-65 IMMATURE GRANULOCYTE % (test code=IG%) 0.4 % 0.0-2.0 LYMPHOCYTE % (test code=LY%) 13.6 % 20.5-45.5 MONOCYTE % (test code=MO%) 7.8 % 5.5-11.7 EOSINOPHIL % (test code=EO%) 0.6 % 0.9-2.9 BASOPHIL % (test code=BA%) 0.4 % 0.2-1.0 NUCLEATED RBC % (test code=NRBC%) 0.0 % 0-1.0 NEUTROPHIL # (test code=NT#) 13.97 x10 3/uL 2.2-4.8 IMMATURE GRANULOCYTE # (test code=IG#) 0.08 x10 3/uL 0-0.03 LYMPHOCYTE # (test code=LY#) 2.47 x10 3/uL 1.3-2.9 MONOCYTE # (test code=MO#) 1.42 x10 3/uL 0.3-0.8 EOSINOPHIL # (test code=EO#) 0.11 x10 3/uL 0.0-0.2 BASOPHIL # (test code=BA#) 0.07 x10 3/uL 0.0-0.1 BASIC METABOLIC [id number] 05:06:00* Test Item Value Reference Range Comments SODIUM (test code=NA) 140 mmol/L 137-145 POTASSIUM (test code=K) 3.6 mmol/L 3.4-5.0 CHLORIDE (test code=CL) 104 mmol/L 98-107 CARBON DIOXIDE (test code=CO2) 28 mmol/L 22-30 GLUCOSE (test code=GLU) 99 mg/dL 74-106 BLOOD UREA NITROGEN (test code=BUN) 14 mg/dL 7-17 GLOMERULAR FILTRATION RATE (test code=GFR) 78 >60 The estimated glomerular filtration rate is computed usingpatient race, age (>18), sex, and serum creatinine. If anyof the needed data elements are missing the Laboratory cannot compute an estimation of the glomerular filtration rate. CREATININE (test code=CREAT) 0.8 mg/dL 0.5-1.0 CALCIUM (test code=CA) 8.6 mg/dL 8.4-10.2 CBC W/AUTO [id number] 04:53:00* Test Item Value Reference Range Comments WHITE BLOOD CELL (test code=WBC) 11.2 x10 3/uL 5.0-12.0 RED BLOOD CELL (test code=RBC) 4.30 x10 6/uL 4.20-5.40 HEMOGLOBIN (test code=HGB) 12.2 g/dL 12.0-16.0 HEMATOCRIT (test code=HCT) 37.7 % 36.0-46.0 MEAN CELL VOLUME (test code=MCV) 88 fL 81-99 MEAN CELL HGB (test code=MCH) 28.4 pg 27-31 MEAN CELL HGB CONCENTRATION (test code=MCHC) 32.4 g/dL 33-37 RED CELL DISTRIBUTION WIDTH (test code=RDW) 13.7 % 11.5-15.5 PLATELET COUNT (test code=PLT) 199 x10 3/uL 130-400 MEAN PLATELET VOLUME (test code=MPV) 11.2 fL 9.4-16.4 NEUTROPHIL % (test code=NT%) 59.9 % 43-65 IMMATURE GRANULOCYTE % (test code=IG%) 0.4 % 0.0-2.0 LYMPHOCYTE % (test code=LY%) 28.6 % 20.5-45.5 MONOCYTE % (test code=MO%) 9.3 % 5.5-11.7 EOSINOPHIL % (test code=EO%) 1.3 % 0.9-2.9 BASOPHIL % (test code=BA%) 0.5 % 0.2-1.0 NUCLEATED RBC % (test code=NRBC%) 0.0 % 0-1.0 NEUTROPHIL # (test code=NT#) 6.67 x10 3/uL 2.2-4.8 IMMATURE GRANULOCYTE # (test code=IG#) 0.05 x10 3/uL 0-0.03 LYMPHOCYTE # (test code=LY#) 3.19 x10 3/uL 1.3-2.9 MONOCYTE # (test code=MO#) 1.04 x10 3/uL 0.3-0.8 EOSINOPHIL # (test code=EO#) 0.15 x10 3/uL 0.0-0.2 BASOPHIL # (test code=BA#) 0.06 x10 3/uL 0.0-0.1 BASIC METABOLIC [id number] 05:39:00* Test Item Value Reference Range Comments SODIUM (test code=NA) 137 mmol/L 137-145 POTASSIUM (test code=K) 3.7 mmol/L 3.4-5.0 CHLORIDE (test code=CL) 106 mmol/L 98-107 CARBON DIOXIDE (test code=CO2) 24 mmol/L 22-30 GLUCOSE (test code=GLU) 111 mg/dL 74-106 BLOOD UREA NITROGEN (test code=BUN) 13 mg/dL 7-17 GLOMERULAR FILTRATION RATE (test code=GFR) 78 >60 The estimated glomerular filtration rate is computed usingpatient race, age (>18), sex, and serum creatinine. If anyof the needed data elements are missing the Laboratory cannot compute an estimation of the glomerular filtration rate. CREATININE (test code=CREAT) 0.8 mg/dL 0.5-1.0 CALCIUM (test code=CA) 8.2 mg/dL 8.4-10.2 CBC W/AUTO [id number] 05:19:00* Test Item Value Reference Range Comments WHITE BLOOD CELL (test code=WBC) 14.3 x10 3/uL 5.0-12.0 RED BLOOD CELL (test code=RBC) 4.22 x10 6/uL 4.20-5.40 HEMOGLOBIN (test code=HGB) 11.8 g/dL 12.0-16.0 HEMATOCRIT (test code=HCT) 36.5 % 36.0-46.0 MEAN CELL VOLUME (test code=MCV) 87 fL 81-99 MEAN CELL HGB (test code=MCH) 28.0 pg 27-31 MEAN CELL HGB CONCENTRATION (test code=MCHC) 32.3 g/dL 33-37 RED CELL DISTRIBUTION WIDTH (test code=RDW) 13.8 % 11.5-15.5 PLATELET COUNT (test code=PLT) 177 x10 3/uL 130-400 MEAN PLATELET VOLUME (test code=MPV) 10.8 fL 9.4-16.4 NEUTROPHIL % (test code=NT%) 68.4 % 43-65 IMMATURE GRANULOCYTE % (test code=IG%) 0.3 % 0.0-2.0 LYMPHOCYTE % (test code=LY%) 20.8 % 20.5-45.5 MONOCYTE % (test code=MO%) 9.7 % 5.5-11.7 EOSINOPHIL % (test code=EO%) 0.5 % 0.9-2.9 BASOPHIL % (test code=BA%) 0.3 % 0.2-1.0 NUCLEATED RBC % (test code=NRBC%) 0.0 % 0-1.0 NEUTROPHIL # (test code=NT#) 9.78 x10 3/uL 2.2-4.8 IMMATURE GRANULOCYTE # (test code=IG#) 0.05 x10 3/uL 0-0.03 LYMPHOCYTE # (test code=LY#) 2.97 x10 3/uL 1.3-2.9 MONOCYTE # (test code=MO#) 1.38 x10 3/uL 0.3-0.8 EOSINOPHIL # (test code=EO#) 0.07 x10 3/uL 0.0-0.2 BASOPHIL # (test code=BA#) 0.05 x10 3/uL 0.0-0.1 URINALYSIS [id number] 12:22:00* Test Item Value Reference Range Comments UA COLOR (test code=COLU) Olya Yellow UA APPEARANCE (test code=APPU) Turbid Clear UA GLUCOSE DIPSTICK (test code=DGLUU) Negative Negative UA BILIRUBIN DIPSTICK (test code=BILU) Negative Negative UA KETONE DIPSTICK (test code=KETU) Negative mg/dL Negative UA SPECIFIC GRAVITY (test code=SGU) 1.018 <1.030 UA BLOOD DIPSTICK (test code=KONG) 3+ Negative UA PH DIPSTICK (test code=TAE) 6.0 5.0-8.0 UA PROTEIN DIPSTICK (test code=PROU) 300 (3+) mg/dL Negative UA UROBILINOGEN DIPSTICK (test code=URO) Negative mg/dL Negative UA NITRITE DIPSTICK (test code=MOIRA) Negative Negative UA LEUKOCYTE ESTERASE DIPSTICK (test code=LEUU) 3+ Negative UA WBC (test code=WBCU) >100 /HPF <4-5 UA RBC (test code=RBCU) >100 /HPF <4-5 UA BACTERIA (test code=BACU) None /HPF None-Rare UA MUCUS (test code=MUCU) 2+ /LPF <Rare LACTIC ACID [id number] 12:07:00* Test Item Value Reference Range Comments LACTIC ACID POC (test code=LACTP) 1.21 mmol/L 0.7-2.0 CBC W/AUTO [id number] 11:55:00* Test Item Value Reference Range Comments WHITE BLOOD CELL (test code=WBC) 25.1 x10 3/uL 5.0-12.0 RED BLOOD CELL (test code=RBC) 5.51 x10 6/uL 4.20-5.40 HEMOGLOBIN (test code=HGB) 15.4 g/dL 12.0-16.0 HEMATOCRIT (test code=HCT) 47.0 % 36.0-46.0 MEAN CELL VOLUME (test code=MCV) 85 fL 81-99 MEAN CELL HGB (test code=MCH) 27.9 pg 27-31 MEAN CELL HGB CONCENTRATION (test code=MCHC) 32.8 g/dL 33-37 RED CELL DISTRIBUTION WIDTH (test code=RDW) 13.5 % 11.5-15.5 PLATELET COUNT (test code=PLT) 236 x10 3/uL 130-400 MEAN PLATELET VOLUME (test code=MPV) 11.1 fL 9.4-16.4 NEUTROPHIL % (test code=NT%) 87.9 % 43-65 IMMATURE GRANULOCYTE % (test code=IG%) 0.4 % 0.0-2.0 LYMPHOCYTE % (test code=LY%) 4.7 % 20.5-45.5 MONOCYTE % (test code=MO%) 6.7 % 5.5-11.7 EOSINOPHIL % (test code=EO%) 0.0 % 0.9-2.9 BASOPHIL % (test code=BA%) 0.3 % 0.2-1.0 NUCLEATED RBC % (test code=NRBC%) 0.0 % 0-1.0 NEUTROPHIL # (test code=NT#) 22.02 x10 3/uL 2.2-4.8 IMMATURE GRANULOCYTE # (test code=IG#) 0.10 x10 3/uL 0-0.03 LYMPHOCYTE # (test code=LY#) 1.18 x10 3/uL 1.3-2.9 MONOCYTE # (test code=MO#) 1.68 x10 3/uL 0.3-0.8 EOSINOPHIL # (test code=EO#) 0.01 x10 3/uL 0.0-0.2 BASOPHIL # (test code=BA#) 0.07 x10 3/uL 0.0-0.1 COMPREHENSIVE METABOLIC [id number] 11:51:00* Test Item Value Reference Range Comments SODIUM (test code=NA) 140 mmol/L 137-145 POTASSIUM (test code=K) 4.2 mmol/L 3.4-5.0 CHLORIDE (test code=CL) 99 mmol/L 98-107 CARBON DIOXIDE (test code=CO2) 29 mmol/L 22-30 GLUCOSE (test code=GLU) 152 mg/dL 74-106 BLOOD UREA NITROGEN (test code=BUN) 16 mg/dL 7-17 GLOMERULAR FILTRATION RATE (test code=GFR) 78 >60 The estimated glomerular filtration rate is computed usingpatient race, age (>18), sex, and serum creatinine. If anyof the needed data elements are missing the Laboratory cannot compute an estimation of the glomerular filtration rate. CREATININE (test code=CREAT) 0.8 mg/dL 0.5-1.0 TOTAL PROTEIN (test code=PROT) 7.6 g/dL 6.3-8.2 ALBUMIN (test code=ALB) 4.6 g/dL 3.5-5.0 CALCIUM (test code=CA) 9.2 mg/dL 8.4-10.2 BILIRUBIN TOTAL (test code=BILT) 0.6 mg/dL 0.2-1.3 BILIRUBIN CONJUGATED (test code=BILCON) 0 mg/dL 0-0.3 ~~~~~~~~~~~~~~~~~~~~~~~~~~~~~~~~~~~~~~~~~~~~~~~~~~~~~~~~~~~~CONJUGATED BILIRUBIN IS THE REPLACEMENT ASSAY FOR DIRECTBILIRUBIN.~~~~~~~~~~~~~~~~~~~~~~~~~~~~~~~~~~~~~~~~~~~~~~~~~~~~~~~~~~~~ BILIRUBIN UNCONJUGATED (test code=BILUNC) 0.5 mg/dL 0-1.1 SGOT/AST (test code=AST) 20 U/L 15-46 SGPT/ALT (test code=ALT) 16 U/L 13-69 ALKALINE PHOSPHATASE (test code=ALKP) 52 U/L 38-126 - CT ABD PELVIS W/O [id number] 11:08:00 FAX: Yesenia Yang MD [phone] Ute: St: DIS Name: JEN LOPEZ [facility] : 0 Age/S: 58/F [address] Unit: [id number] Loc: [place] [address] Phys: Roger Osorio NP Acct: [id number] Dis Date: Status: DIS IN PHONE #: [phone] Exam Date: 04/27/2019 1050 FAX #: [phone] Reason: left flank pain EXAMS: CPT CODE: [id number] CT ABD PELVIS W/O CONT 06409 CT Abdomen and Pelvis without cont rast. Location: B2 Clinical indication: 58-year-old with left flank pain Comparison: July 22, 2018 Te chnique: Computed axial images were obtained from the diaphragms through t he pubic symphysis without IV contrast. Suboptimal evaluation of viscera d ue to lack of contrast. Up to date CT equipment and radiation dose techniq ue were utilized. Findings: Abdomen: Lung bases ar e clear. The liver, gallbladder, spleen, adrenal glands, pancreas, and merrick wel are without acute abnormality. There is left hydronephrosis and perin ephric/periureteral inflammatory stranding. The only calculus which is id entified is approximately 2 to 3 mm within a dilated segment of upper uret er. There is hydroureter below this. A more distal obstructing calculus is not identified. Right kidney is normal. Pelvis: Sigmoid diverticulosis. Urinary bladder is partially distended. No free pelvic f luid. Normal appendix. No acute osseous abnormality. Imp ression: Left hydroureteronephrosis and perinephric inflammat ory stranding. There is a tiny calculus within the dilated segment of u reter, but a more distal obstructing calculus is not identified. Differ ential considerations include recently passed calculus or obstruction wi th noncalcified structure such as mass. Alternatively, there may be chronic hydronephrosis with superinfection. Further evaluation is needed. Electronically Signed by Annie Williamson MD on 09/2018 at 1108 Reported and signed by: Annie Williamson PAGE 1 Signed Report ([facility]) FAX: Yesenia Yang MD [phone] Ute: St: DIS------ Name: JEN DE JESUS [facility] : [birth year] Age/S: 58/F [address] Unit: [id number] Loc: [place] [address] Phys: Roger Osorio NP Acct: [id number] Dis Date: Status: DIS IN PHONE #: Exam Date: 04/27/2019 1050 FAX #: [phone] Reason: left flank pain EXAMS: CPT CODE: [id number] CT ABD PELVIS W/O CONT 45997 <Continued> CC: Yesenia Leavitt MD Technologist: CRISSY MICHAELS Trnscrd Dt/Tm: 04/27/2019 (4616) [email or web address] Orig Print D/T: S: 04/27/2019 (1111 PAGE 2 Signed Report - CT ABD PELVIS W/O [id number] 11:08:00 FAX: Yesenia Yang MD [phone] Ute: St: REG Name: JEN LOPEZ : 0 Age/S: 58/F [address] Unit: [id number] Loc: [place] [address] Phys: Roger Osorio NP Acct: [id number] Dis Date: Status: REG ER PHONE #: [phone] Exam Date: 04/27/2019 1050 FAX #: [phone] Reason: left flank pain EXAMS: CPT CODE: [id number] CT ABD PELVIS W/O CONT 21003 CT Abdomen and Pelvis without cont rast. Location: B2 Clinical indication: 58-year-old with left flank pain Comparison: July 22, 2018 Te chnique: Computed axial images were obtained from the diaphragms through t he pubic symphysis without IV contrast. Suboptimal evaluation of viscera d ue to lack of contrast. Up to date CT equipment and radiation dose techniq ue were utilized. Findings: Abdomen: Lung bases ar e clear. The liver, gallbladder, spleen, adrenal glands, pancreas, and merrick wel are without acute abnormality. There is left hydronephrosis and perin ephric/periureteral inflammatory stranding. The only calculus which is id entified is approximately 2 to 3 mm within a dilated segment of upper uret er. There is hydroureter below this. A more distal obstructing calculus is not identified. Right kidney is normal. Pelvis: Sigmoid diverticulosis. Urinary bladder is partially distended. No free pelvic f luid. Normal appendix. No acute osseous abnormality. Imp ression: Left hydroureteronephrosis and perinephric inflammat ory stranding. There is a tiny calculus within the dilated segment of u reter, but a more distal obstructing calculus is not identified. Differ ential considerations include recently passed calculus or obstruction wi th noncalcified structure such as mass. Alternatively, there may be chronic hydronephrosis with superinfection. Further evaluation is needed. Electronically Signed by Annie Williamson MD on 09/2018 at 1108 Reported and signed by: Annie Williamson PAGE 1 Signed Report (CONTINU ED) FAX: Yesenia Yang MD [phone] Ute: St: REG------ Name: JEN DE JESUS [facility] [place] : [birth year] Age/S: 58/F [address] Unit: [id number] Loc: [place] [address] Phys: Roger Osorio NP Acct: [id number] Dis Date: Status: REG ER PHONE #: Exam Date: 04/27/2019 1050 FAX #: [phone] Reason: left flank pain EXAMS: CPT CODE: [id number] CT ABD PELVIS W/O CONT 44578 <Continued> CC: Yesenia Leavitt MD Technologist: CRISSY MICHAELS Trnscrd Dt/Tm: 04/27/2019 110) [email or web address] Orig Print D/T: S: 04/27/2019 (1111 PAGE 2 Signed Report - MAMMO SCR CAD [id number] 10:05:00 FAX: Yesenia Yang MD [phone] Ute: St: DEP Name: JEN DE LE[facility] : [birth year] Age/S: 58/F [address] Unit #: [id number] Loc: [place] [address] Phys: Yesenia Leavitt MD Acct: [id number] Dis Date: Status: DEP CLI PHONE #: [phone] Exam Date: 08/04/2018 1310 FAX #: [phone] Reason: ROUTINE EXAMS: CPT CODE: [id number] [place] [address] DIGITAL BILATERAL SCREENING MAMMOGRAM EVALUATED WITH CAD: History of left breast benign lumpectomy. COMPARISON EXAMS: Dating back to March 2017, January 2016. FINDINGS: Bilateral CC and MLO views are performed. The breast tissue is hetero geneously dense which could obscure detection of small masses. Postoperat flora changes left breast. No suspicious calcifications, distortion or susp icious mass lesions. IMPRESSION: (CATEGORY 2) No radiographic e vidence of malignancy -- negative. RECOMMENDATION: Bhavani l screening mammogram. [facility] RESULT CODE: 2 FOLLOW UP: N at 1005 Reported and signed by: Missy Ellis M.D. CC: Yesenia Marcano MD Technologist: RT Linda Topete)(R) Trnscrd Date/Time/By: 08/08/2018 (1005) : By: [email or web address] Orig Print D/T: S: 08/08/2018 (1003) PAGE 1 Signed Report FOREIGN [id number] 16:45:00 RUN DATE: 07/25/18 [place] [facility] PAGE 1 RUN TIME: 1645 Specimen Inqui ry RUN USER: INTERFACE PATIENT: JEN DE JESUS ACCT #: C [id number] LOC: [facility] #: [id number] AGE/SX: 58/F ROOM: [facility] RE07/23/18 DR: Terence Greenberg DO : 60 BED: A DIS: STATUS: ADM IN TLOC: SPEC #: [id number] RECD: 07/25/18 STATUS: JIMBO RE #: [id number] MARÍA: 07/24/[address] [facility] [address]: Rashad Ghosh MD ENTERED: 07/25/18 SP TYPE: FOR BODY OTHR DR: Neha lentz or Family Physician Yesenia Leavitt MD, Shawn MD S antos, Luviza J MDORDERED: GROSS, STONE ANALYSIS TISSUES: A. CALCULI - LEFT URETERAL STO NE CLINICAL HISTORY LEFT URETERAL STONE FINAL MICROSCOPIC DIAGNOSIS LEFT URETER STONE, REMOVAL: URINARY CALCULUS (GROSS IDENTIFICATION) SPECIMEN SUBMITTED TO AN OUTSIDE LABORATORY FOR CHEMICAL ANALYSIS (SEPARATE REPORT TO FOLLOW) CPT 63798 GROSS DESCRIPTION The specimen is designated with the patient's name, demographics and "left ureteral stone for ID." It consists of one red-brown stone (0.4 cm greatest dimension). The specimen is submitted to an outside laboratory for chemical analysis. Signed SIGNATURE ON FILE Deepa Escobar MD 07/25/18 1645 EN D OF REPORT FOREIGN [id number] 16:45:00 RUN DATE: 08/02/18 [employer] PAGE 1 RUN TIME: 1139 Specimen Inqui ry RUN USER: INTERFACE PATIENT: JEN DE JESUS ACCT #: C [id number] [facility] #: [id number] AGE/SX: 58/F ROOM: [facility] RE07/23/18REG DR: Terence Greenberg DO : 60 BED: A DIS: 07/26/18 STATUS: DIS IN TLOC: SPEC #: [id number] RECD: 07/25/18 STATUS: JIMBO LAY #: [id number] MARÍA: 07/24/[address] [facility] DR: Rashad Ghosh MD ENTERED: 07/25/18 SP TYPE: FOR BODY OTHR DR: Neha lentz or Family Physician Yesenia Leavitt MD, Shawn MD S antos, Luviza J MDORDERED: GROSS, STONE ANALYSIS TISSUES: A. CALCULI - LEFT URETERAL STO NE ADDENDUM FINDINGS Addendum #1 Entered: 08/02/18 Chemical Analysis is [facility] [address] [place] [address], [address]. Please see separate accession [id number] for full details. RESULTS: COLOR: RED SIZE: SPECIMEN RECEIVED Asiya WALL WEIGHT: 33.3 MG COMPOSITION (PERCENTAGE REPRESENTS % COMPOSITION): CA OXALATE DIHYDRATE 10% CA OXALATE MONOHYDR. 70% C ALCIUM PHOSPHATE 20% NIDUS: NO NIDUS VISUALIZED Addendum Signed SIGNAT URE ON FILE Lines,Josey JACKSON 08/02/181138 CLINICAL HISTORY LEFT URETERAL STONE FINAL MICROSCOPIC DIAGNOSIS LEFT URETER STONE, REMOVAL: URINARY CALCULUS (GROSS IDENTIFICATION) MARY GRACE GARRETT SUBMITTED TO AN OUTSIDE LABORATORY FOR CHEMICAL ANALYSIS (SEPAR ATE REPORT TO FOLLOW) CONTINUED ON NEXT PA RUN DATE: 08/02/18 [place] [facility] PAGE 2 RUN TIME: 1139 Specimen Inquiry RUN USER: INTERFACE SPEC #: [id number] PATIENT: JEN DE JESUS #[id number] (Continued) FINAL MICROSCOP IC DIAGNOSIS (Continued) CPT 84904 GROSS DESCRIPTION The sp francois is designated with the patient's name, demographics and "left ureteral stone for ID." It consists of one red-brown stone (0.4 cm greatest dimension). T he specimen is submitted to an outside laboratory for chemical analysis. ----- ------- Signed SIGNATURE ON FILE Deepa Escobar MD 06/28 06/14 6665 END OF REPORT - XR UROGRAM [id number] 07:57:00 FAX: Yesenia Yang MD [phone] Ute: St: DIS FAX: Rashad Bucio MD [phone] FAX: Terence Ledesma DO [phone] --------- Name: JEN DE JESUS [facility] : 1960 Age/S: 58/F [address] Un it #: [id number] Loc: [place] [address] Phys: Rashad Ghosh MD Acct: [id number] Dis Date: Status: DIS IN ONE #: [phone] Exam Date: 07/24/2018 1333 FAX #: [phone] Reason: CYSTO/RIGHT STENT PLACEMENT EXAMS: CPT CODE: [id number] XR UROGRAM RETRO 56268 EXAM: - XR UR OGRAM RETRO HISTORY: CYSTO/RIGHT STENT PLACEMENT Loc ation code:C3 COMPARISON: None available time of interpretation. FINDINGS: Intraoperative fluoroscopy was provided for ORIF. Radiologist was not present for the procedure. 3 fluoroscopy images were obtained. Please see surgical report. IMPRESSION: 1. As above. Fluoroscopy time: 2 minutes 31 seconds at 0757 Reported and signed by: Skinny Sosa MD CC: Yesenia Leavitt MD; Rashad Ghosh MD; Terence Greenberg DO Technologist: Elvira Grove Trnsaint elizabeth florence Date/Time/By: 07/25 (0757) : By: [email or web address] PAGE 1 Signed Rep ort FAX: Yesenia Yang MD Ute: [facility]: DIS FAX: Rashad Bucio MD [phone] FAX: Caren GreenbergTerence DO [phone] [place]: [place] : 1960 Age/S: 58/F [address] Unit #: [id number] Loc: [place] [address] Phys: Rashad Ghosh MD Acct: [id number] Dis Date: Status: DIS IN PHONE #: [phone] Exam Date: 2017 1333 FAX #: [phone] Reason: CYSTO/RIGHT STEN T PLACEMENT EXAMS: CPT CODE: [id number] XR UROGRAM RETRO 08974 <Continued> Orig Print D/T: S: 07/25/2018 (0800) PAGE 2 Signed Report - CT ABD PELVIS W/O [id number] 19:51:00 FAX: Roger Osorio NP [phone] Ute: [facility]: DIS Name: JEN LOPEZ ELIZABETHSymone [place] : 0 Age/S: 58/F [address] Unit: [id number] Loc: [place] [address] Phys: Roger Osorio NP Acct: [id number] Dis Date: Status: DIS IN PHONE #: [phone] Exam Date: 07/22/2018 1857 FAX #: [phone] Reason: LEFT FLANK PAIN EXAMS: CPT CODE: [id number] CT ABD PELVIS W/O CONT 06555 CT OF THE ABDOMEN AND PELVIS WITHOUT CONTRAST LOCATION: R16 CLINICAL HISTORY: Left flank pain. COMPARISON: No previous exam available. TECHNIQUE: 5 mm contiguous axial images were obtained from the diaphragmatic dome through the symphysis pubis. No contrast was administer ed. Automated exposure reduction (Auto mA/Smart mA) was utilized in compl iance with ACR Image Wisely with DLP of 389 mGy-cm. FINDINGS : The visualized structures of the lower thorax are unremarkable. A 13 x 7 x 7 mm left ureteropelvic junction calculus is present, with severe left hydronephrosis. The right kidney and the bilateral uret ers are unremarkable. The liver, spleen, pancreas, gallbladder, and the a drenal glands are unremarkable. Colonic diverticulosis is seen, without e vidence of diverticulitis. Other unopacified loops of bowel are within no rmal limits. No mesenteric or retroperitoneal lymphadenopathy is found. N o free fluid is seen. Atherosclerotic calcifications are noted in the abd ominal aorta and the iliac arteries. Within the pelvis, the uterus and bilateral ovaries are absent. The urinary bladder is unremarka ble. No abnormal mass, free fluid, or free air is found. The appendix is normal. The osseous structures are unremarkable. IMPRESS ION: 13 x 7 x 7 mm left ureteropelvic junction calculus with severe lef t hydronephrosis. Colonic diverticulosis without evidence of div erticulitis. at 1951 Reported and signed by: Joellen Townsend PAGE 1 Signed Report (CONTINUED) FAX: Roger Osorio NP [phone] Ute: St: DIS Name: JEN DE JESUS [facility] : 1960 Age/S: 58 /F [address] Unit: [id number] Loc: [place] [address] Phys: Roger Osorio NP Acct: [id number] Dis Date: S tatus: DIS IN PHONE #: [phone] Exam Da te: 07/22/2018 1857 FAX #: [phone] Reason: LEFT FLANK PAIN EXAMS: CPT CODE: [id number] CT ABD PELVIS W/O CONT 25058 <Continued> CC: Roger Osorio NP Technologist: Agency Technologist; Althea Buckner Trnscrd Dt/Tm: 07/22/2018 (1950) [email or web address] Orig Print D/T: S: 07/22/2018 (1954 PAGE 2 Signed Report - MRI C-SPINE W/O [id number] 13:56:00 FAX: Sudeep Longoria MD [phone] Ute: St: [facility] Name: JEN DE LEON [facility] : [birth year] Age/S: 57/F [address] Unit #: [id number] Loc: [place] [address] Phys: Sudeep Bonilla MD Acct: [id number] Dis Date: Status: UNK PHONE #: [phone] Exam Date: 07/22/2017 1325 FAX #: [phone] Reason: LEFT ARM NUMB EXAMS: CPT CODE: [id number] MRI C-SPINE W/O CONT 40560 HISTORY: Left arm numbness. COMPARISON: None available. MRI C-spine without contrast: No cerebellar ectopia. No cord compression, syrinx or myelomalacia. Vertebral body heights are maintained. Bone marrow signal is within normal limits. Cervical fusion with metallic plates at C5-C6 level anteriorly resulting in extensive blooming artifact. Disc spaces are preserved. No prevertebral soft tissue swelling is noted. At C2-C3 level no disc herniation, canal stenosis or foraminal regina rowing. At C3-C4 level no disc herniation, canal stenosis or lyida inal narrowing. At C4-C5 level right disc osteophyte resulti ng in moderate right foraminal stenosis. Contact suspected with the exiti ng right C5 nerve root. Correlate with radicular symptoms. Mild facet hy pertrophy. Left foramen is patent At C5-C6 level artifact f rom the fusion plate anteriorly with no disc herniation, canal stenosis or foraminal narrowing. At C6-C7 level artifact from the metallic pl ate but no disc herniation, canal stenosis or foraminal narrowing. At C7-T1 level no disc herniation, canal stenosis or foraminal narr owing. IMPRESSION: Right lateral disc osteophy te at C4-C5 level resulting in moderate right foraminal stenosis and con tact suspected with the exiting right C5 nerve root. Correlate with rad icular symptoms. Metallic fusion plate seen anteriorly at C5-C 6 level resulting in extensive artifact. No disc herniation, canal sten osis or foraminal narrowing of the level. PAGE 1 Signed Report (CONTINUED) FAX: Deshawn Longoria MD [phone] Ute: St: [facility] Name: JEN DE JESUS [facility] : 1960 Age/S: 57/F [address] Unit #: [id number] Loc: [place] [address] Phys: Sudeep Bonilla MD Acct: [id number] Dis Date: Status: UNK PHONE #: [phone] Exam Date: 1325 FAX #: [phone] Reason: LEFT ARM NUM B EXAMS: CPT CODE: [id number] MRI C-SPINE W/O CONT 59166 <Continued> No cord compression, syrinx or myelomalacia. at 8875 Reported and signed by: Jw Arredondo M.D. CC: Sudeep Bonilla MD Technologist: Velma Franco(Mark)(MR) Trnscrd Date/Time/By: 07/22/2017 (3494) : By: [email or web address] Orig Print D/T: S: 07/22/2017 (5952) PAGE 2 Signed Report - MRI BRAIN W/O CONTRAST 2017-07-22 10:32:00 FAX: Davonte Brody MD [phone] Ute: St: [facility] Name: JEN DE LEON [facility] : [birth year] Age/S: 57/F [address] [facility] Unit #: [id number] Loc: [place] [address] Phys: Davonte Brody MD Acct: [id number] Dis Date: Status: UNK PHONE #: [phone] Exam Date: 07/22/2017 1003 FAX #: [phone] Reason: L sided numbness EXAMS: CPT CODE: [id number] MRI BRAIN W/O CONTRAST 87860 HISTORY: Left sided numbness TECHNIQUE: Sagittal T1, axial FLAIR, axial T2, axial gradient T2, axial T1, coronal T2, and DWI/ADC sequences of the brain were acquired. Examination acquired within 24 hours of arrival. COMPARISON: Head CT 07/21/17 FINDINGS: No evidence of acute ischemi c insult. No intracranial mass, mass effect, or midline shift. No intracra nial hemorrhage. No hydrocephalus. Pituitary gland and corpus callosum are normal in appearance. No extra-axial fluid collections. Normal vascular flow-voids are identified. Visualized orbital contents are unremarkab le. Paranasal sinuses are clear. Calvarial and skull base marrow signal is preserved. IMPRESSION: No acute infarct or o ther acute intracranial process. No mass or mass effect. Mala ctronically Signed by Amena Moore D.O. on 07/22/2017 at 1032 Reported and signed by: Amena Moore D.O. CC: Davonte Brody MD Technologist: Rodney Mckenzie RT(R),(MR),(CT) Trnnhrd Date/Time/By: 07/22/2017 (1032) : By: [email or web address] Orig Print D/T: S: 07/22/2017 (1036) PAGE 1 Signed Report - CT HEAD/BRAIN W/O [id number] 17:39:00 Name: JEN DE JESUS [facility] : 1960 Age/S: 57 / F [address] [facility] Unit #: [id number] Loc: [facility] [place] [address] Phys: Davonte Brody MD Acct: [id number] Dis Date: Status: UNK PHONE #: [phone] Exam Date: 07/21/2017 1719 FAX #: [phone] Reason: L sided numbness EXAMS: CPT CODE: [id number] CT HEAD/BRAIN W/O CONT 84120 HISTORY: Left-sided numbness. No prior films available for comparison. CT brain without contrast: Automated exposure control. No acute intracranial bleeds or extra-axial collections are noted. No acute territorial vascular infarction is noted. The sulci, gyri, ventricles and subarachnoid spaces and the basilar cisterns are normal for patient's age. No herniation or hydrocephalus or midline shift is noted. Mild periventricular ischemic gliosis is noted. Age-appropriate atrophy is noted as well. Portions of the visualized paranasal sinuses are normal. No obvious bony calvarial defect is noted. IMPRESSION: No acute intracranial bleeds or extra-axial collections. No acute territorial vascular infarction. Correlate with MRI scan for further evaluation as clinically indicated. No herniation or hydrocephalus or midline shift. Chronic white matter ischemic disease and atrophy . at 2367 Reported and signed by: Jw Arredondo M.D. CC: Davonte Brody MD Technologist:ANNIE ABBOTT RT(R) CT CTDI: DLP: Trnscb Date/Time: 07/21/2017 (7991) Pat Orig Print D/T: S: 07/21/2017 (6154) PAGE 1 Signed Report - XR CHEST 1 [id number] 17:13:00 FAX: Davonte Brody MD [phone] Ute: St: [facility] Name: JNE DE LEON [facility] : [birth year] Age/S: 57/F [address] [facility] Unit #: [id number] Loc: [place] [address] Phys: Davonte Brody MD Acct: [id number] Dis Date: Status: UNK PHONE #: [phone] Exam Date: 07/21/2017 171 FAX #: [phone] Reason: CHEST PAIN EXAMS: CPT CODE: [id number] XR CHEST 1 V 57339 HISTORY: Chest pain. COMPARISON: None available. No acute infiltrates, effusion or con gestion is noted. Cardiomegaly. Cervical fusion in the lower neck . IMPRESSION: No acute infiltrates, effusion or congestion. Electronically Signed by Anna Arredondo on 017 at 1713 Reported and signed by: Jw Arredondo M.D. CC: Davonte Brody MD Technologist: Annie Garcia RT(R) Trnscrd Date/Time/By: 07/21/2017 (1713) : By: Pat Orig Print D/T: S: 07/21/2017 (8945) PAGE 1 Signed Report - MAMMO SCR CAD [id number] 15:20:00 FAX: Yesenia Yang MD [phone] Ute: St: UNK Name: JEN DE LEON [facility] : [birth year] Age/S: 56/F [address] [facility] Unit #: [id number] Loc: [place] [address] Phys: Yesenia Leavitt MD Acct: [id number] Dis Date: Status: UNK PHONE #: [phone] Exam Date: 04/13/2017 1543 FAX #: [phone] Reason: ROUTINE EXAMS: CPT CODE: [id number] [place] [address] CLINICAL HISTORY: Asymptom atic. Annual screening. EXAMINATION: Bilateral digital sc reening mammography COMPARISON: January 2016 TECH NIQUE: Bilateral digital breast images were obtained in the and [facility] pro jections then analyzed with an [employer] computer-aided detection system (CAD). FINDINGS: Allowing for technical and physiologic differences, the breasts are stable. The breasts are composed of complex heterog eneously dense glandular tissues with fibroadipose backgrounds. This pattern is a normal variant that conveys two significant risk factors: 1, Complex density can conceal breast pathology. (Immediate risk) 2. Dense tissues are associated with elevated risk for developing breast m alignancy. (Lifetime risk) No suspicious mass, malignant type calcificatio n, architectural distortion or lymph node abnormality detected. SUMMARY: Heterogeneously dense parenchymal patterns with no mammograph ic evidence of malignancy. No indication for additional study or en hanced surveillance. Based on the NCI risk evaluation program, this patien t has an estimated lifetime risk for developing breast malignancy of 7.9 % . RECOMMENDATION: Resume annual screening mammography in J keaton 2018. We have provided your patient with the Breast Density N otification Letter required by [place] H.B[place] 2102 ([place]enda's Law, 2010). This letter recommends that she discuss her risk factors with h Primary Service Bar Cashier to determine whether Supplemental Screening would be appropriate. For clinically normal patients who have mammogr aphically dense breast tissues, Supplemental Screening can detect some jeanna ast malignancies that are not apparent on mammography. FDA-approved Suppl emental PAGE 1 Signed Report (CONT INUED) FAX: Yesenia Yang MD [phone] Ute: St: UNK--- Na me: JEN DE JESUS [facility] : 0 1960 Age/S: 56/F [address] [facility] Unit #: [id number] Loc: [place] [address] Phys: Ismael Leavitt MD Acct: [id number] Dis Da te: Status: UNK PHONE #: [phone] Exam Date: 04/13/2017 1543 FAX #: Reason: ROUTINE EXAMS: CPT CODE: [id number] [place] [address] <Continued> Screening Modalities include Ultrasound (BUS, ABUS), Digital Breast Tomosynthesis (DBT), Magnetic Resonance Imaging (MRI), and Radionuclide Imaging (BSGI, MBI). RESULT CODE: 2 FOR INTERNAL CODING PURPOSES ONLY RESU LT CODE: 2 FOLLOW UP: N at 1520 Reported and signed by: Albert Harris M.D. CC: Yesenia Leavitt MD Technologist: RT Efrem (M)(R) Trnscrd Date/Time/By: 04/14/2017 (8900) : By: [email or web address] Orig Print D/T: S: 04/14/2017 (7021) PAGE 2 Signed Report - XR CALCANEUS 2+V [id number] 10:51:00 FAX: Yesenia Yang MD [phone] Ute: O St: UNK Name: JEN DE LEON [facility] : [birth year] Age/S: 56/F [address] [facility] Unit #: [id number] Loc: [place] [address] Phys: Yesenia Leavitt MD Acct: [id number] Dis Date: Status: UNK PHONE #: [phone] Exam Date: 04/02/2017 1027 FAX #: [phone] Reason: EXAMS: CPT CODE: [id number] XR CALCANEUS 2+[place] [address] EXAMINATION: X-RAY CALCANEUS, 2 EWS-BILATERAL INDICATION: Plantar fasciitis. TECHNIQ UE: Axial and lateral views. COMPARISON: None. FINDI NGS: Small left plantar calcaneal spur. Bilateral Achilles entheso jude. The visualized mid and hindfoot osseous structures are un remarkable. Soft tissues are unremarkable. IMPRESS ION: Left plantar calcaneal spur. Bilateral Achilles spurring. at 1051 Reported and signed by: Narda George M.D. CC: Yesenia Leavitt MD Technologist: STUDENT TECHNOLOGIST; Jose Antonio CROSS(R) Trnscrd Date/Time/By: 04/02/2017 (9187) : By: [email or web address] Orig Print D/T: S: 04/02/2017 (1426) PAGE 1 Signed Report - XR CALCANEUS 2+V [id number] 10:51:00 FAX: Yesenia Yang MD [phone] Ute: O St: UNK Name: JEN DE LEON [facility] : [birth year] Age/S: 56/F [address] [facility] Unit #: [id number] Loc: [facility] [place] [address] Phys: Yesenia Leavitt MD Acct: [id number] Dis Date: Status: UNK PHONE #: [phone] Exam Date: 04/02/2017 1027 FAX #: [phone] Reason: PLANTAR FASCHITIS EXAMS: CPT CODE: [id number] XR CALCANEUS 2+[place] [address] EXAMINATION: X-RAY CALCANEUS, 2 EWS-BILATERAL INDICATION: Plantar fasciitis. TECHNIQ UE: Axial and lateral views. COMPARISON: None. FINDI NGS: Small left plantar calcaneal spur. Bilateral Achilles entheso jude. The visualized mid and hindfoot osseous structures are un remarkable. Soft tissues are unremarkable. IMPRESS ION: Left plantar calcaneal spur. Bilateral Achilles spurring. at 1051 Reported and signed by: Narda George M.D. CC: Yesenia Leavitt MD Technologist: STUDENT TECHNOLOGIST; Jose Antonio North RT(R) Trnscrd Date/Time/By: 04/02/2017 (7599) : By: [email or web address] Orig Print D/T: S: 04/02/2017 (6978) PAGE 1 Signed Report - CT ABD PELVIS W/O [id number] 07:32:00 Name: JEN DE JESUS [facility] : 1960 Age/S: 52 / F [address] [facility] Unit #: [id number] Loc: [place] [address] Phys: Carlos Estrada MD Acct: [id number] Dis Date: Status: UNK PHONE #: [phone] Exam Date: 08/14/2012 0033 FAX #: [phone] Reason: ABDOMINAL PAIN EXAMS: CPT CODE: [id number] CT ABD PELVIS W/O CONT 66949 After-hours service 12:[address] scan of the abdomen and pelvis was performed without intravenous contrast. The liver is unremarkable. The spleen, pancreas and adrenal glands are unremarkable. There is a 4 mm stone in the left mid ureter, causing moderate left hydronephrosis. There is no right hydronephrosis. There is a tiny 1 mm stone in the right renal collecting system. The appendix appears unremarkable. There is no imaging evidence of bowel obstruction. There are diverticula involving the colon. No free air and no free fluid are identified. The lung bases are unremarkable. This case was originally supervised and interpreted by Dr. Parker, on-call radiologist at the time of the exam and the results communicated between Dr. Parker and the hospital at the time of the exam. IMPRESSION: 4 mm stone in left mid ureter, causing moderate left hydronephrosis. Tiny nonobstructing right nephrolithiasis. Electronically Si gned by Samuel Rivero MD on 08/14/2012 at 0732 Reported and signed by: Samuel Rivero MD PAGE 1 Signed Report (CONTINUED) Name: JEN DE JESUS [facility] : 1960 Age/S: 52 / F [address] [facility] Unit #: [id number] Loc: [place] [address] Phys: Carlos Estrada MD Acct: [id number] Di s Date: Status: UNK PHONE #: [phone] Exam Date: 08/14/2012 0033 FAX #: [phone] Reason: ABDOMINAL PAIN EXAMS: CPT CODE: [id number] CT ABD PELVIS W/O CONT 23770 <Continued> CC: Carlos Estrada MD Technologist:COLE MARTIN CTDI: DLP: Trnscb Date/Time: 08/14/2012 (0732) [email or web address] Orig Print D/T: S: 08/14/2012 (0735) PAGE 2 Signed Report - XR FOOT 3 + V*2007-02-24 06:25:00 FAX: Marky Holt [phone] Ute: St: [facility] Name: JEN DE LEON [facility] : [birth year] Age/S: 46/F [address] [facility] Unit #: [id number] Loc: [place] [address] Phys: Marky Nichols Acct: [id number] Dis Date: Status: UNK PHONE #: [phone] Exam Date: 02/23/2007 184 FAX #: [phone] Reason: - LEFT EXAMS: CPT CODE: [id number] XR FOOT 3 + V* 48876 DICTATED: 02/24/07, 06 HISTORY: STEPPED ON THE FOOT, TWISTED ANKLE LEFT FOOT THREE VIEW S, 02/23/07: 1. The bony structures are intact without eviden ce of fractures, dislocations, or destructive lesions. 2. No soft tissue foreign bodies are identified. 3. No a ppreciable soft tissue swelling is seen. 4. No arthritic abnor malities are demonstrated. Spur arising from the tuberosit y of the calcaneus and soft tissue swelling in the ankle. CONCLUSION: NEGATIVE EXAM. [facility]/salty /34431 at 123 1 Reported and signed by: Hollis Brooks M.D. CC: Marky Cortés Technologist: MAHAD ALDRIDGE Trnnhrd Date/Time/By: 2006 (1018) : By: Donna/Francois Orig Print D/T: (7511) S: (4666) PAGE 1 Signed Report
== END | disposition home or self-care (01) ==
LOC: OR 06:12
PROVIDERS: ATTEND Internal Medicine Gastroenterology
DX: Z12.11 Encounter for screening for malignant neoplasm of colon (principal); D12.4 Benign neoplasm of descending colon; K62.1 Rectal polyp; K57.30 Diverticulosis of large intestine without perforation or abscess without bleeding; K64.8 Other hemorrhoids; I10 Essential (primary) hypertension; E78.5 Hyperlipidemia, unspecified; E11.9 Type 2 diabetes mellitus without complications; I49.1 Atrial premature depolarization; N20.0 Calculus of kidney; Z91.041 Radiographic dye allergy status; Z01.810 Encounter for preprocedural cardiovascular examination; Z79.84 Long term (current) use of oral hypoglycemic drugs
CPT/HCPCS: 36415; 45380; 45384; 45385; 82948; 93005; J2704

== ENCOUNTER 2022-03-10 18:33 | Emergency (ER) | payer BC, OTHER ==
[~2022-03-10] VITALS: Ht 162.6 cm; Wt 73.9 kg
[~2022-03-10 18:33] MED LIST changes: -HYOSCYAMINE 0.125 MG TAB ONE; -PROPOFOL IV EMULSION 10 MG/ML 50 ML VIAL ONE
[2022-03-10 19:50] LABS: BASOPHILS # (AUTO) 0.1 (0.0-0.1); BASOPHILS % 0.5 % (0.0-1.0); EOSINOPHILS # (AUTO) 0.3 (0.0-0.4); EOSINOPHILS % 2.5 % (0.0-6.0); HEMATOCRIT 42.7 % (34.2-44.1); HEMOGLOBIN 13.2 g/dL (12.0-16.0); LYMPHOCYTES # (AUTO) 3.2 (1.0-3.2); LYMPHOCYTES % 29.8 % (18.0-39.1); MEAN CORPUSCULAR HEMOGLOBIN 28.1 pg (28-32); MEAN CORPUSCULAR HGB CONC 30.9 g/dL (31-35); MONOCYTES % 9.1 % (4.4-11.3); NEUTROPHILS # (AUTO) 6.1 (2.1-6.9); NEUTROPHILS % 57.3 % (38.7-80.0); PLATELET COUNT 247 x10e3/uL (140-360); RED BLOOD COUNT 4.69 x10e6/uL (3.6-5.1); RED CELL DISTRIBUTION WIDTH 14.3 % (11.7-14.4)
[2022-03-10 20:10] LABS: ALBUMIN 3.4 g/dL (3.5-5.0); ANION GAP 13.4 mmol/L (8-16); CALCIUM 8.5 mg/dL (8.4-10.2); CREATININE, SERUM 0.97 mg/dL (0.57-1.11); POTASSIUM 4.4 mmol/L (3.5-5.1)
[2022-03-10 20:21] LABS: CLARITY,URINE SL CLOUDY (CLEAR); COLOR,URINE YELLOW (YELLOW); KETONES,URINE NEGATIVE (NEGATIVE); LEUKOCYTE ESTERASE ,URINE SMALL (NEGATIVE); NITRITE,URINE NEGATIVE (NEGATIVE); PROTEIN,URINE DIPSTICK 2+ (NEGATIVE); URINE UROBILINOGEN 0.2 mg/dL (0.2 - 1)
[2022-03-10 20:25] LABS: AMPHETAMINES SCREEN,URINE NEGATIVE (NEGATIVE); BENZODIAZEPINES SCREEN,URINE POSITIVE (NEGATIVE); PHENCYCLIDINE SCREEN,URINE NEGATIVE (NEGATIVE)
[2022-03-10 20:39] LABS: AMORPHOUS SEDIMENT,URINE MODERATE (FEW); BACTERIA,URINE MODERATE /HPF; EPITHELIAL CELLS,URINE FEW /LPF; TRANSITIONAL EPI CELLS,URINE MODERATE
== END 2022-03-10 22:15 | disposition home or self-care (01) ==
LOC: ER 18:47
DX: S02.2XXA Fracture of nasal bones, initial encounter for closed fracture (principal); N39.0 Urinary tract infection, site not specified; R55 Syncope and collapse; E78.00 Pure hypercholesterolemia, unspecified; V47.5XXA Car driver injured in collision with fixed or stationary object in traffic accident, initial encounter; Z91.041 Radiographic dye allergy status; Z79.84 Long term (current) use of oral hypoglycemic drugs; Z79.899 Other long term (current) drug therapy
CPT/HCPCS: 36415; 70450; 70486; 71250; 72125; 74176; 80053; 80307; 81001; 85025; 93005; 99283